=== PATIENT | female | born 1950 | race Caucasian/White ===

== ENCOUNTER 2017-04-03 10:27 | Day surgery (SDC) | payer MEDICARE ==
[~2017-04-03 10:27] MED LIST: ACET-703 PO; BETA0.1C TOPICAL; FERR325T PO; FLOR250C PO; GAS-80CH CHEW; HYDR-3516 PO; LEXA10TA PO; LISI-519 PO; MULT1CHW; SENN1TAB PO; TUMS500C CHEW; VITACAP32; ZANT150T2 PO
[2017-04-03] MEDS ORDERED: GAS-CAP3 PO (11:22)
[2017-04-03] MEDS ORDERED: VITA250T3 PO (11:22)
[2017-04-03] MEDS ORDERED: ASPI81CH37 CHEW (11:22)
[2017-04-03] MEDS ORDERED: FERR325C PO (11:22)
[2017-04-03] MEDS ORDERED: CHLORHEXIDINE GLUCONATE 2 % 1 PACK (2 CLOTHS) TOPICAL SCH (11:45)
[2017-04-03] MEDS ORDERED: ceFAZolin 2 GM PREMIX 50 ML IV SCH (11:45)
[2017-04-03] MEDS ORDERED: POVIDONE IODINE 5% (ANTISEPSIS KIT) 4 APPLICATIONS EACH NARE SCH (11:45)
[2017-04-03] MEDS ORDERED: MUPIROCIN 2% OINT 1 APPLIC/GM SYR NASAL SCH (11:45)
[2017-04-03] MEDS ORDERED: MIDAZOLAM HCL 2 MG/2 ML VIAL ONE (13:23)
--- NOTE | 2017-04-03 17:18 | MP ---
cc: CHANO DEAN M.D. DATE OF SURGERY 04/03/2017 OPERATIVE PROCEDURE Loop recorder insertion. INDICATION Cryptogenic stroke. CONSENT Full informed consent was obtained prior to the procedure. The risks of , bleeding, infection, foreseen and unforeseen complications were reviewed. The patient fully appeared to understand the risks. PROCEDURE DETAILS PT was prepped and draped in the usual manner. Left chest was prepped and draped in usual manner. Sedation was given by the undersigned of 2 mg of Versed and 50 of fentanyl. The patient given local anesthetic and a loop recorder was placed. CONCLUSION 1. Successful placement of loop recorder. 2. Sedation given with a Versed and fentanyl. PLAN We will plan to discharge the patient later today. Chano Dean MD, CP,[facility] HAJ/KK /2:36 PM /4:57 PM [facility] CENTERPatrick
== END 2017-04-03 15:30 | disposition home or self-care (01) ==
LOC: HDOC 10:27 → HDIC 10:28 → HDOC 15:30
PROVIDERS: ATTEND Internal Medicine Cardiovascular Disease
DX: I63.9 Cerebral infarction, unspecified (principal); I10 Essential (primary) hypertension; K21.9 Gastro-esophageal reflux disease without esophagitis
CPT/HCPCS: 33282; C1764; J2250; J3010

== ENCOUNTER → 2017-11-05 | Outpatient (CLI) | payer MEDICARE ==
[~2017-11-05] MED LIST changes: -ACET-703 PO; +ARTH650T6 PO; +ASPI81CH6 CHEW; -BETA0.1C TOPICAL; +DICL75TA PO; +FERR325C PO; -FERR325T PO; +FERR325T18 PO; -GAS-80CH CHEW; +GAS-CAP3 PO; -HYDR-3516 PO; +LISI10TA3 PO; -MULT1CHW; -SENN1TAB PO; +VITA250T3 PO; -VITACAP32
[2017-11-05 12:25] LABS: AUTOMATED NEUTROPHIL # 4.8 TH/MM3 (1.8-7.7); BASOPHIL % 0.6 % (0.0-2.0); EOSINOPHIL # 0.1 TH/MM3 (0-0.4); EOSINOPHIL % 1.5 % (0.0-4.0); HEMATOCRIT 39.9 % (35.0-46.0); HEMOGLOBIN 13.3 GM/DL (11.6-15.3); LYMPH % 23.6 % (9.0-44.0); LYMPHOCYTE # 1.7 TH/MM3 (1.0-4.8); MEAN CELL VOLUME 92.2 FL (80.0-100.0); MEAN CORPUSCULAR HEMOGLOBIN 30.8 PG (27.0-34.0); MEAN CORPUSCULAR HGB CONC 33.4 % (32.0-36.0); MEAN PLATELET VOLUME 8.5 FL (7.0-11.0); MONOCYTE # 0.5 TH/MM3 (0-0.9); NEUT % 67.3 % (16.0-70.0); PLATELET COUNT 310 TH/MM3 (150-450); RED BLOOD COUNT 4.33 MIL/MM3 (4.00-5.30); RED CELL DISTRIBUTION WIDTH 13.7 % (11.6-17.2); WHITE BLOOD COUNT 7.1 TH/MM3 (4.0-11.0)
[2017-11-05 12:37] LABS: PROTHROMBIN TIME - PATIENT 10.3 SEC (9.8-11.6)
[2017-11-05 12:41] LABS: BACTERIA, URINE FEW /hpf; BILIRUBIN, URINE NEG (NEG); BLOOD, URINE NEG (NEG); GLUCOSE,URINE NEG (NEG); HYALINE CAST, URINE 5 /lpf (RARE); KETONE, URINE NEG (NEG); MUCUS URINE FEW /lpf (OCC); NITRITE,URINE NEG (NEG); PH, URINE 5.5 (5.0-8.5); SQUAMOUS EPITHELIAL CELL URINE 2 /hpf (0-5); URINE COLOR YELLOW (YELLW/STRAW); URINE LEUKOCYTE ESTERASE SMALL (NEG)
[2017-11-05 12:54] LABS: WESTERGREN SEDIMENTATION RATE 44 mm/hr (0-30)
[2017-11-05 12:56] LABS: ALBUMIN 3.5 GM/DL (3.4-5.0); AST (GOT) 19 U/L (15-37); BICARBONATE 28.8 MEQ/L (21.0-32.0); BLOOD UREA NITROGEN 20 MG/DL (7-18); CALCIUM 8.7 MG/DL (8.5-10.1); CHLORIDE 112 MEQ/L (98-107); GLOMERULAR FILTRATION RATE 84 ML/MIN (>89); GLUCOSE,FASTING 86 MG/DL (74-99); SODIUM (NA) 146 MEQ/L (136-145)
[2017-11-05 12:57] LABS: ALT (GPT) 31 U/L (10-53)
[2017-11-05 12:59] LABS: ALKALINE PHOSPHATASE 119 U/L (45-117); TOTAL BILIRUBIN ADULT 0.3 MG/DL (0.2-1.0); TOTAL PROTEIN 7.6 GM/DL (6.4-8.2)
--- NOTE | 2017-11-05 13:30 | RADRPT ---
EXAM DATE/TIME: 11/05/2017 12:52 [facility] COMPARISON: No previous studies available for comparison. INDICATIONS : Preop Evaluate for pneumonia, pneumothorax, and communicable disease MEDICAL HISTORY : Hypertension. SURGICAL HISTORY : loop recorder ENCOUNTER: Initial ACUITY: 1 day PAIN SCORE: 0/10 LOCATION: chest FINDINGS: PA and lateral views of the chest demonstrate the lungs to be symmetrically aerated without evidence of mass, infiltrate or effusion. The cardiomediastinal contours are unremarkable. Mild degenerative changes in the mid thoracic spine. Loop recorder device in place. CONCLUSION: No acute cardiopulmonary disease. Mraco Barillas MD on November 05, 2017 at 13:27 Board Certified Radiologist. This report was verified electronically.
== END ==
LOC: CPRE 11:40
PROVIDERS: ATTEND Orthopaedic Surgery
DX: Z01.812 Encounter for preprocedural laboratory examination (principal); Z01.811 Encounter for preprocedural respiratory examination; Z01.818 Encounter for other preprocedural examination; M16.11 Unilateral primary osteoarthritis, right hip; M79.609 Pain in unspecified limb; M25.50 Pain in unspecified joint
CPT/HCPCS: 36415; 71046; 80053; 81001; 85025; 85610; 85652; 85730; 87086

== ENCOUNTER 2017-11-21 05:12 | Inpatient (IN) | payer MEDICARE ==
[~2017-11-21] VITALS: Ht 152.4 cm; Wt 93.0 kg
[~2017-11-21 05:12] MED LIST changes: -FERR325C PO; -LISI-519 PO
[2017-11-21] MEDS ORDERED: CHLORHEXIDINE GLUCONATE 4% SOLN 120 ML BTL TOPICAL SCH (05:45)
[2017-11-21] MEDS ORDERED: POVIDONE IODINE 7.5% SCRUB 118 ML BOTTLE TOPICAL SCH (05:45)
[2017-11-21] MEDS ORDERED: INSULIN HUMAN REGULAR 1,000 UNITS/10 ML VIAL SQ PRN (05:45)
[2017-11-21] MEDS ORDERED: LACTATED RINGER'S 1000 ML IV PRN (05:45)
[2017-11-21] MEDS ORDERED: METOPROLOL TARTRATE 25 MG TAB PO PRN (05:45)
[2017-11-21] MEDS ORDERED: POVIDONE IODINE 5% (ANTISEPSIS KIT) 4 APPLICATIONS EACH NARE PRN (05:45)
[2017-11-21] MEDS ORDERED: CHLORHEXIDINE GLUCONATE 2 % 1 PACK (2 CLOTHS) TOPICAL PRN (05:45)
[2017-11-21] MEDS ORDERED: SODIUM CHLORID 0.9% 500 ML IV PRN (05:45)
[2017-11-21] MEDS ORDERED: ceFAZolin 2 GM PREMIX 50 ML IV SCH (05:45)
[2017-11-21] MEDS ORDERED: GENTAMICIN SULFATE 80 MG/2 ML VIAL ONE (06:06)
[2017-11-21] MEDS ORDERED: VANCOMYCIN 1 GM/200 ML INJ 200 ML IV ONE (06:12)
[2017-11-21] MEDS ORDERED: ACETAMINOPHEN 1000 MG/100 ML 100 ML IV ONE (06:38)
[2017-11-21] MEDS ORDERED: FAMOTIDINE 20 MG/2 ML VIAL ONE (06:38)
--- NOTE | 2017-11-21 06:51 | HHI.DCPOC ---
Discharge Care Plan Diagnosis: (1) Osteoarthritis of right hip (2) Status post total hip replacement, right Your Health Problems Are: Difficulty with ADL Goals to Promote Your Health * To prevent worsening of your condition and complications * To maintain your health at the optimal level Directions to Meet Your Goals Take your medications as prescribed Follow your dietary instruction Follow activity as directed Keep your appointments as scheduled Take your immunizations and boosters as scheduled If your symptoms worsen call your PCP, if no PCP go to Urgent Care Center or Emergency Room Smoking is Dangerous to Your Health. Avoid second hand smoke Call the 24-hour hour crisis hotline for domestic abuse at Garcia Givens November 21, 2017 06:51
--- NOTE | 2017-11-21 06:52 | HHI.FF ---
Face to Face Verification Diagnosis: (1) Osteoarthritis of right hip (2) Status post total hip replacement, right Physical Therapy Gait training, Transfer training, bed to chair Hip: Total hip Right LE Weight Bearing: WB as tolerated Right LE Range of Motion: Active ROM Nursing Nursing: Tory patel Dressing Changes: Do not change dressing Additional Instructions First dressing change in the office I have seen patient Isabela Mccormick on 11/21/17. My clinical findings support the need for the requested home health care services because: Limited ability to care for self High risk of falls I certify that my clinical findings support that this patient is homebound because: Post-op weakness Unsteady gait/balance Garcia Givens November 21, 2017 06:52
[2017-11-21] MEDS ORDERED: VANCOMYCIN 1000 MG/NS 250 ML (for <70 kg) IV SCH ×2 (07:00)
[2017-11-21] MEDS ORDERED: DEXAMETHASONE SOD PHOS 20 MG/5 ML VIAL IV PUSH ONE (07:00)
[2017-11-21] MEDS ORDERED: WALKER WHEELS/F1 MIS (07:06)
[2017-11-21] MEDS ORDERED: COMMODE 3-IN-11 MIS (07:06)
[2017-11-21] MEDS: TRANEXAMIC ACID INJ 930 MG in SODIUM CHLORIDE 0.9% INJ 100 ML IV SCH ×2 (07:21→08:01)
[2017-11-21] MEDS: EXPAREL PERI-ARTICULAR INJECTION (TOTAL VOL. 60 ML) P-ARTICULR SCH ×4 (07:33→08:03)
[2017-11-21] MEDS ORDERED: HYDROmorphone HCL PF 2 MG/ML VIAL ONE (08:17)
--- NOTE | 2017-11-21 08:44 | RADRPT ---
EXAM DATE/TIME: 11/21/2017 06:30 [facility] COMPARISON: No previous studies available for comparison. INDICATIONS : Right hip pain, anterior hip replacement done in operating room. MEDICAL HISTORY : None. SURGICAL HISTORY : None. ENCOUNTER: Initial ACUITY: 1 day PAIN SCORE: Non-responsive. LOCATION: Right hip. FINDINGS: The patient is status post a total hip arthroplasty with a bipolar prosthesis. Prosthesis is well-sea saurabh. Alignment is anatomic. A fracture is not appreciated. CONCLUSION: Anatomic alignment. Richar Winn MD FACR on November 21, 2017 at 8:41 Board Certified Radiologist. This report was verified electronically.
[2017-11-21] MEDS ORDERED: NALOXONE HCL 0.4 MG/ML AMP IV PUSH PRN (08:45)
[2017-11-21] MEDS ORDERED: BISACODYL 10 MG SUPP RECTAL PRN (08:45)
[2017-11-21] MEDS ORDERED: MAGNESIUM HYDROXIDE SUSP 30 ML CUP PO PRN (08:45)
[2017-11-21] MEDS ORDERED: SIMETHICONE 180 MG PO PRN (08:45)
[2017-11-21] MEDS ORDERED: ALUMINUM/MAGNESIUM/SIMETH 30 ML CUP PO PRN (08:45)
[2017-11-21] MEDS ORDERED: diphenhydrAMINE HCL 50 MG/ML VIAL IV PUSH PRN (08:45)
[2017-11-21] MEDS ORDERED: ZOLPIDEM TARTRATE 5 MG TAB PO PRN (08:45)
[2017-11-21] MEDS ORDERED: MORPHINE SULFATE 4 MG/ML INJ IV PUSH PRN (08:45)
[2017-11-21] MEDS ORDERED: Post-op Orders (for Pharmacy) XX ONE (08:45)
--- NOTE | 2017-11-21 08:49 | PD.OP ---
cc: Edson Brandon MD Operative Report Date of Surgery: November 21, 2017 Preoperative Diagnosis: Right hip severe arthritis Postoperative Diagnosis: Same Procedure: Right total hip arthroplasty Anesthesia: General Surgeon: Edson Brandon Ginner Helper(s): TYE Bennett The surgical procedure was assisted by my Advanced Registered Nurse Practitioner. My SHANK BONER presence was necessary throughout this case for the manipulation and positioning of the surgical extremity. My SHANK BONER was assisting me throughout the duration of this procedure. The skill set of an Advance Registered Nurse Practitioner was medically necessary to complete this procedure. During the surgical case, the surgical sales representative was working at the back table and the Advance Registered Nurse Practitioner was directly assisting me. Operation and Findings: IMPLANT DESCRIPTION: 1. Galva Gription Cup, acetabular size 48, with single screw. 2. Galva AltrX polyethylene, neutral. 4. Corail femoral stem size 11, no collar, standard offset. 5. Femoral head/neck metal, 32, +5. ESTIMATED BLOOD LOSS: 250 cc. JUSTIFICATION FOR PROCEDURE: The patient has end-stage osteoarthritis to the hip. There is an attached conservative measures pathway form in the chart that describes the nonoperative measures that were undertaken prior to consideration of surgical management. The patient understood the risks and benefits of surgical management. See my office notes for further details. PROCEDURE: The patient was brought back to the operative theatre. Adequate anesthesia was obtained. The patient received intravenous vancomycin and Ancef. The patient was carefully placed on the operative table. The lower extremity was prepped and draped in the usual sterile fashion. Fluoroscopic images were obtained. We made a standard anterior incision over the hip. We dissected through the TFL fascia, exposing the anterior capsule. Arthrotomy was performed in a T-shaped fashion. The capsule was tagged with a #2 FiberWire. End-stage arthritis was identified. Osteotomy was performed through the femoral neck exposing the acetabulum. Remnants of the labrum were resected and osteophytes were removed. We sequentially reamed the acetabulum. We trialed the hip and placed the final cup into position. This was done under fluoroscopic guidance to obtain the appropriate inclination and anteversion. We placed a single screw under fluoroscopic guidance through the acetabular component with good purchase. A manhole cover was placed into the acetabular component. We then placed the final polyethylene into position and confirmed that it was well seated. Capsular attachments on the calcar and the inner aspect of the greater trochanter were resected. On the proximal aspect of the femur we used a rongeur , box osteotome, canal finder, sequential broaches and lateralizing rasp. We calcar planed the proximal femur. Then thoroughly irrigated the wound. We trialed the hip with the appropriate size stem. We placed the final stem in to position and trialed again. The hip was stable while it was externally rotated 70 degrees when the leg was lowered to the floor. We trialed the +1 neck length but found that it was unstable with external rotation is 70 in the leg brought about senior living down towards the floor with anterior subluxation and then dislocation. We decided to go with the +5. The +5 is much more stable. The final head was applied, and final fluoroscopic images were obtained. The wound was thoroughly irrigated again. Interarticular injection of liposomal bupivacaine was given. The capsule was closed with #2 FiberWire and #1 Vicryl. The deep fascia was closed with a #2 Stratafix, followed by 2-0 Vicryl in the skin and Dermabond dressing. Postop plan is to weight-bear as tolerated. DVT prophylaxis will be performed with SCDaracely, DONNIE mansfield, early mobilization, and Lovenox followed by aspirin. Edson Brandon MD November 21, 2017 08:48
[2017-11-21] MEDS ORDERED: NON-FORMULARY DRUG (Saccharomyces Boulardii (Florastor) 250 MG) PO SCH (09:00)
[2017-11-21] MEDS ORDERED: DO NOT ADM ANY ANTICOAGULANT DRUGS PRN (09:10)
[2017-11-21] MEDS ORDERED: ONDANSETRON ODT 4 MG TAB PO PRN (09:30)
[2017-11-21] MEDS ORDERED: *morphine SULFATE 4 MG/ML PERIprocedure ONLY ONE ×2 (09:35→09:43)
[2017-11-21] MEDS: SODIUM CHLOR 0.9% 1000 ML INJ 1,000 ML IV SCH ×2 (09:50→18:25)
[2017-11-21] MEDS ORDERED: *HYDROmorphone PF 0.5 MG/0.5 ML PERIprocedure ONLY ONE (09:55)
[2017-11-21] MEDS: LISINOPRIL 10 MG TAB PO SCH ×2 (10:00→20:47)
[2017-11-21] MEDS: FERROUS SULFATE 325 MG (65 MG ELEMENTAL IRON) TAB PO SCH (10:00)
[2017-11-21] MEDS ORDERED: TRANEXAMIC ACID INJ 930 MG in SODIUM CHLORIDE 0.9% INJ 100 ML IV SCH (11:00)
--- NOTE | 2017-11-21 11:07 | RADRPT ---
EXAM DATE/TIME: 11/21/2017 09:43 [facility] COMPARISON: HIP RIGHT (AP&LAT 2/3VWS) W AP PELVIS, June 30, 2016, 19:26. INDICATIONS : Post-op right hip. MEDICAL HISTORY : Cerebrovascular disease. Hypertension. Seizures.Breast cancer SURGICAL HISTORY : Craniotomy. ENCOUNTER: Initial ACUITY: 1 day PAIN SCORE: 10/10 LOCATION: Right Hip. FINDINGS: The patient is status post a total hip arthroplasty with a bipolar prosthesis. Prosthesis is well-sea saurabh. Alignment is anatomic. A fracture is not appreciated. CONCLUSION: Anatomic alignment. Richar Winn MD FACR Board Certified Radiologist. This report was verified electronically.
[2017-11-21] MEDS ORDERED: NEOSTIGMINE 5 MG/5 ML SYRINGE IV PUSH ONE (12:00)
[2017-11-21] MEDS ORDERED: GLYCOPYRROLATE 1 MG/5 ML SYRINGE IV PUSH ONE (12:00)
[2017-11-21] MEDS ORDERED: ePHEDrine/NS 25 MG/5 ML SYRINGE IV ONE (12:00)
[2017-11-21] MEDS ORDERED: ROCURONIUM INJ 50 MG/5 ML SYRINGE IV PUSH ONE (12:00)
[2017-11-21] MEDS ORDERED: LIDOCAINE HCL 1% PF 5 ML SYRINGE OTHER ONE (12:00)
[2017-11-21] MEDS ORDERED: PROPOFOL 200 MG/20 ML AMP IV ONE (12:00)
[2017-11-21] MEDS ORDERED: ONDANSETRON HCL 4 MG/2 ML VIAL IV ONE (12:00)
[2017-11-21 12:25] VITALS: BP 115/59; PULSE 60; RESP 18; TEMP 97.4; O2SAT 100
[2017-11-21] MEDS ORDERED: ENALAPRILAT 1.25 MG/ML VIAL IV PUSH PRN (15:45)
--- NOTE | 2017-11-21 15:52 | PD.CONS ---
[facility] By [facility] Brandon Reason for Consult Opinion and treatment of patient's elevated blood pressure Primary Care Physician Unknown Diagnoses: History of Present Illness 67-year-old white female with a previous history of osteoporosis and osteoarthritis who has had long history of right hip pain and failed outpatient conservative treatment. She electively underwent a right total hip arthroplasty today with Dr. Brandon. She states that her pain is currently controlled well. She denies a history of blood in the stool or black tarry stools. She denies a history of constipation. Review of Systems Constitutional: DENIES: Fatigue, Fever, Chills, Change in appetite Endocrine: DENIES: Heat/cold intolerance Eyes: DENIES: Blurred vision, Eye pain, Vision loss Ears, nose, mouth, throat: DENIES: Hearing loss, Nasal discharge, Throat pain, Ear Pain, Sinus Pain Respiratory: DENIES: Cough, Shortness of breath Cardiovascular: DENIES: Chest pain, Palpitations, Dyspnea on Exertion, Lower Extremity Edema Gastrointestinal: DENIES: Abdominal pain, Black stools, Bloody stools, Constipation, Diarrhea, Nausea, Vomiting Genitourinary: DENIES: Dysuria Musculoskeletal: COMPLAINS OF: Joint pain, DENIES: Muscle aches, Stiffness Integumentary: DENIES: Rash Hematologic/lymphatic: DENIES: Bruising, Lymphadenopathy Immunologic/allergic: DENIES: Eczema Neurologic: DENIES: Headache, Localized weakness, Paresthesias Psychiatric: DENIES: Anxiety, Depression, Suicidal Ideation Right hip and knee pain Past Family Social History Allergies: Coded Allergies: cyclobenzaprine (Unverified Adverse Reaction, Severe, Confusion, 11/21/17) Pt states it makes her loopy diazepam (Unverified Adverse Reaction, Mild, CRYING, 11/21/17) Past Medical History Osteoporosis Osteoarthritis Cataracts Migraine headaches Hypertension GERD Anxiety Depression Previous history of breast cancer Past Surgical History Gastric bypass Cholecystectomy Left total knee replacement Left hip fracture repair Right lumpectomy Cataract surgery Rhinoplasty Reported Medications Acetaminophen as needed for pain Vitamin C p.o. daily Aspirin 81 mg p.o. daily Calcium carbonate 500 mg chewable as needed for dyspepsia Diclofenac 75 mg p.o. twice daily Lexapro 10 mg p.o. nightly Ferrous sulfate 325 mg p.o. daily Lisinopril 10 mg p.o. twice daily Zantac 150 milligrams p.o. daily Forastor 250 mg PO Daily Gas-X as needed Family History Mother had CVA dementia hypertension osteoarthritis Father of a brain aneurysm Social History Does not smoke cigarettes or drink alcohol. Physical Exam Vital Signs Vital Signs Date Time Temp Pulse Resp B/P (MAP) Pulse Ox O2 Delivery O2 Flow Rate FiO2 11/21/17 12:00 54 14 113/56 (75) 96 Nasal Cannula 2 11/21/17 11:30 55 14 139/64 (89) 100 Nasal Cannula 2 11/21/17 10:30 97.9 62 12 133/55 (81) 98 Nasal Cannula 2 11/21/17 10:15 60 14 132/63 (86) 95 Nasal Cannula 2 11/21/17 10:00 70 24 119/57 (77) 99 Nasal Cannula 2 11/21/17 09:45 74 26 144/70 (94) 98 Nasal Cannula 2 11/21/17 09:30 85 15 132/68 (89) 98 Nasal Cannula 2 11/21/17 09:15 91 12 126/64 (84) 94 Simple Mask 6 11/21/17 09:13 97.5 93 14 112/59 (76) 96 Simple Mask 6 11/21/17 05:58 97.1 57 18 157/79 (105) 96 Physical Exam GENERAL: This is a well-nourished, well-developed patient, in no apparent distress. SKIN: No rashes, ecchymoses or lesions. Cool and dry. HEAD: Atraumatic. Normocephalic. No temporal or scalp tenderness. EYES: Pupils equal round and reactive. Extraocular motions intact. No scleral icterus. No injection or drainage. ENT: Nose without bleeding, purulent drainage or septal hematoma. Throat without erythema, tonsillar hypertrophy or exudate. Uvula midline. Airway patent. NECK: Trachea midline. No JVD or lymphadenopathy. Supple, nontender, no meningeal signs. CARDIOVASCULAR: Regular rate and rhythm RESPIRATORY: Clear to auscultation. Breath sounds equal bilaterally. No wheezes , rales, or rhonchi. GASTROINTESTINAL: Abdomen soft, non-tender, nondistended. No hepato-splenomegaly , or palpable masses. No guarding. MUSCULOSKELETAL: Extremities without clubbing, cyanosis, or edema. Bilateral SCDs, right hip bandage clean dry intact NEUROLOGICAL: Awake and alert. Cranial nerves II through XII intact. Motor and sensory grossly within normal limits. Normal speech. Assessment and Plan Assessment and Plan 1. Status post right total hip arthroplasty -continue postoperative care, physical therapy, pain control per orthopedic surgery Dr. Brandon 2. hypertension, chronic essential continue home lisinopril. Vasotec as needed for any uncontrolled blood pressure. Further recommendations based on blood pressure trends. 3. History of depression/anxiety resume home Lexapro 4. History of GERD resume Zantac 5. DVT prophylaxis risks and benefits of anticoagulation discussed with patient today. Initiate Lovenox per orthopedic surgery thank you for this consultation Christine Lowery MD November 21, 2017 15:52
[2017-11-21 16:00] VITALS: BP 138/72; PULSE 62; RESP 18; TEMP 98.5; O2SAT 96
[2017-11-21] MEDS: ACETAMINOPHEN/HYDROcodone 325 MG/5 MG TAB PO PRN ×2 (16:07→20:57)
[2017-11-21 20:00] VITALS: BP 145/63; PULSE 61; RESP 19; TEMP 97.4; O2SAT 96
[2017-11-21] MEDS: ESCITALOPRAM OXALATE 10 MG TAB PO SCH (20:46)
[2017-11-21] MEDS: FAMOTIDINE 20 MG TAB PO SCH (20:46)
[2017-11-22] VITALS: BP 158/67; PULSE 63; RESP 20; TEMP 98; O2SAT 99
[2017-11-22] MEDS: ACETAMINOPHEN/HYDROcodone 325 MG/5 MG TAB PO PRN ×5 (00:49→21:27)
[2017-11-22 06:27] LABS: HEMATOCRIT 32.9 % (35.0-46.0); HEMOGLOBIN 11.1 GM/DL (11.6-15.3); MEAN CELL VOLUME 91.2 FL (80.0-100.0); MEAN CORPUSCULAR HEMOGLOBIN 30.8 PG (27.0-34.0); MEAN CORPUSCULAR HGB CONC 33.8 % (32.0-36.0); MEAN PLATELET VOLUME 8.6 FL (7.0-11.0); PLATELET COUNT 265 TH/MM3 (150-450); RED CELL DISTRIBUTION WIDTH 13.3 % (11.6-17.2); WHITE BLOOD COUNT 9.1 TH/MM3 (4.0-11.0)
[2017-11-22] MEDS: SODIUM CHLOR 0.9% 1000 ML INJ 1,000 ML IV SCH ×2 (06:28→14:50)
[2017-11-22] MEDS ORDERED: DEXAMETHASONE SOD PHOS 20 MG/5 ML VIAL IV ONE (07:45)
[2017-11-22 08:00] VITALS: BP 128/74; PULSE 108; RESP 19; TEMP 98.3; O2SAT 98
[2017-11-22] MEDS: FERROUS SULFATE 325 MG (65 MG ELEMENTAL IRON) TAB PO SCH (08:02)
[2017-11-22] MEDS: FAMOTIDINE 20 MG TAB PO SCH ×2 (08:02→19:51)
[2017-11-22] MEDS: LISINOPRIL 10 MG TAB PO SCH ×2 (08:02→19:50)
[2017-11-22] MEDS: ENOXAPARIN SODIUM 40 MG/0.4 ML SYRINGE SQ SCH (08:02)
[2017-11-22] MEDS ORDERED: CALCIUM CARBONATE 500 MG CHEWABLE TAB CHEW PRN (09:15)
[2017-11-22 12:05] VITALS: BP 140/65; PULSE 68; RESP 18; TEMP 98.3; O2SAT 95
--- NOTE | 2017-11-22 14:10 | HHI.PR ---
Subjective Remarks Late charting: Patient seen earlier today at 9:15 Patient feel, "foggy." after receiving pain medications. Offers no other complaints at this time Objective Vitals Vital Signs Date Time Temp Pulse Resp B/P (MAP) Pulse Ox O2 Delivery O2 Flow Rate FiO2 11/22/17 12:05 98.3 68 18 140/65 (90) 95 11/22/17 08:00 98.3 108 19 128/74 (92) 98 11/22/17 00:00 98.0 63 20 158/67 (97) 99 11/21/17 20:00 97.4 61 19 145/63 (90) 96 11/21/17 17:07 18 11/21/17 16:00 98.5 62 18 138/72 (94) 96 I/O 11/21/17 11/21/17 11/21/17 11/22/17 11/22/17 11/22/17 07:00 15:00 23:00 07:00 15:00 23:00 Intake Total 1250 ml 480 ml Output Total 550 ml Balance 700 ml 480 ml Intake Oral 480 ml IV Total 1250 ml Output Urine Total 300 ml Estimated Blood Loss 250 ml # Voids 1 Result Diagram: 11/22/17 0519 Other Results Laboratory Tests Test 11/22/17 05:19 White Blood Count 9.1 TH/MM3 Red Blood Count 3.60 MIL/MM3 Hemoglobin 11.1 GM/DL Hematocrit 32.9 % Mean Corpuscular Volume 91.2 FL Mean Corpuscular Hemoglobin 30.8 PG Mean Corpuscular Hemoglobin Concent 33.8 % Red Cell Distribution Width 13.3 % Platelet Count 265 TH/MM3 Mean Platelet Volume 8.6 FL Imaging Last Impressions Hip and Pelvis X-Ray 11/21/17 0843 Signed Impressions: Service Date/Time: Tuesday, November 21, 2017 09:43 - CONCLUSION: Anatomic alignment. Richar Winn MD Hip X-Ray 11/21/17 0000 Signed Impressions: Service Date/Time: Tuesday, November 21, 2017 06:30 - CONCLUSION: Anatomic alignment. Richar Winn MD FACR Objective Remarks GENERAL: This is a well-nourished, well-developed patient, fatigued but in no apparent distress. CARDIOVASCULAR: Regular rate and rhythm RESPIRATORY: Clear to auscultation. Breath sounds equal bilaterally. GASTROINTESTINAL: Abdomen soft, non-tender, nondistended. Normal active bowel sounds MUSCULOSKELETAL: post-op dressing dry and intact NEURO: Alert & Oriented x4 to person, place, time, situation. Moves all ext x4 A/P Problem List: (1) Osteoarthritis of right hip ICD Code: M16.11 - Unilateral primary osteoarthritis, right hip (2) Hypertension ICD Code: I10 - Hypertension Status: Chronic Assessment and Plan 1. Status post right total hip arthroplasty 11/[address] Brandon -continue postoperative care, physical therapy, pain control per orthopedic 2. hypertension, chronic essential continue home lisinopril. Vasotec as needed for any uncontrolled blood pressure. Further recommendations based on blood pressure trends. 3. History of depression/anxiety resume home Lexapro 4. History of GERD resume Zantac 5. DVT prophylaxis Lovenox per orthopedic surgery Supervising physician Dr. Pike Problem Qualifiers (1) Osteoarthritis of right hip: Qualified Codes: M16.11 - Unilateral primary osteoarthritis, right hip Monik Baca November 22, 2017 14:10
[2017-11-22 15:45] VITALS: BP 119/59; PULSE 60; RESP 18; TEMP 97.4; O2SAT 93
--- NOTE | 2017-11-22 18:35 | PD.ORT.PN ---
Subjective Post Op Day #: 1 Subjective Remarks Patient is OOB in chair eating dinner with at bedside. Patient reports moderate right hip pain. Patient has been ambulatory. Objective Vitals Vital Signs Date Time Temp Pulse Resp B/P (MAP) Pulse Ox O2 Delivery O2 Flow Rate FiO2 11/22/17 15:45 97.4 60 18 119/59 (79) 93 11/22/17 12:05 98.3 68 18 140/65 (90) 95 11/22/17 08:00 98.3 108 19 128/74 (92) 98 11/22/17 00:00 98.0 63 20 158/67 (97) 99 11/21/17 20:00 97.4 61 19 145/63 (90) 96 I/O 11/21/17 11/21/17 11/21/17 11/22/17 11/22/17 11/22/17 07:00 15:00 23:00 07:00 15:00 23:00 Intake Total 1250 ml 480 ml 960 ml Output Total 550 ml Balance 700 ml 480 ml 960 ml Intake Oral 480 ml 960 ml IV Total 1250 ml Output Urine Total 300 ml Estimated Blood Loss 250 ml # Voids 1 4 # Bowel Movements 0 Result Diagram: 11/22/17 0519 Procedures Right JENNIFER Objective Remarks Dressing is C/D/I. Moderate ecchymosis to the right hip. EHL/TA/G intact. 2+ pedal pulse. Calf is soft and nontender. + SILT distally. Assessment & Plan Ortho Post Op Day #: 1 Problem List: Assessment and Plan POD #1: Right JENNIFER 1. WBAT RLE 2. Lovenox followed by ASA for DVT prophylaxis 3. Ice to the Right hip PRN 4. Stable for discharge home with home health on Sunday. 5. F/U in the office with Dr. Brandon or Bernabe GAMBLE as previously scheduled. Garcia Givens November 22, 2017 18:35
[2017-11-22] MEDS: DOCUSATE SODIUM 100 MG CAP PO SCH (19:50)
[2017-11-22] MEDS: MULTIVITAMINS/MINERALS THERAPEUTIC TAB PO SCH (19:51)
[2017-11-22] MEDS: ESCITALOPRAM OXALATE 10 MG TAB PO SCH (19:51)
[2017-11-22 20:00] VITALS: BP 113/58; PULSE 61; RESP 20; TEMP 97.7; O2SAT 94
[2017-11-23] VITALS: BP 144/66; PULSE 59; RESP 20; TEMP 97.9; O2SAT 93
[2017-11-23] MEDS: SODIUM CHLOR 0.9% 1000 ML INJ 1,000 ML IV SCH (01:00)
[2017-11-23] MEDS: ACETAMINOPHEN/HYDROcodone 325 MG/5 MG TAB PO PRN ×2 (01:40→10:51)
[2017-11-23 04:00] VITALS: BP 148/68; PULSE 54; RESP 20; TEMP 97.5; O2SAT 95
[2017-11-23 05:08] LABS: HEMATOCRIT 30.1 % (35.0-46.0); HEMOGLOBIN 10.3 GM/DL (11.6-15.3); MEAN CELL VOLUME 91.2 FL (80.0-100.0); MEAN CORPUSCULAR HEMOGLOBIN 31.1 PG (27.0-34.0); MEAN CORPUSCULAR HGB CONC 34.1 % (32.0-36.0); MEAN PLATELET VOLUME 8.7 FL (7.0-11.0); PLATELET COUNT 230 TH/MM3 (150-450); RED CELL DISTRIBUTION WIDTH 13.8 % (11.6-17.2); WHITE BLOOD COUNT 10.4 TH/MM3 (4.0-11.0)
[2017-11-23 07:24] VITALS: BP 115/64; PULSE 59; RESP 17; TEMP 98.1; O2SAT 93
[2017-11-23] MEDS: LISINOPRIL 10 MG TAB PO SCH (08:29)
[2017-11-23] MEDS: DOCUSATE SODIUM 100 MG CAP PO SCH (08:29)
[2017-11-23] MEDS: MULTIVITAMINS/MINERALS THERAPEUTIC TAB PO SCH (08:29)
[2017-11-23] MEDS: FERROUS SULFATE 325 MG (65 MG ELEMENTAL IRON) TAB PO SCH (08:29)
[2017-11-23] MEDS: FAMOTIDINE 20 MG TAB PO SCH (08:30)
[2017-11-23] MEDS: ENOXAPARIN SODIUM 40 MG/0.4 ML SYRINGE SQ SCH (08:31)
--- NOTE | 2017-11-26 21:11 | HHI.DS ---
Discharge Summary Admission Date November 21, 2017 at 05:12 Discharge Date: November 23, 2017 Admitting Diagnosis OA of the right hip Status post total hip replacement, right Diagnosis: (1) Osteoarthritis of right hip Diagnosis: Principal ICD Codes: M16.11 - Unilateral primary osteoarthritis, right hip (2) Status post total hip replacement, right Diagnosis: Principal ICD Codes: Z96.641 - Presence of right artificial hip joint Procedures Right JENNIFER Brief History This is a 67 year old female patient with severe OA of the right hip CBC/BMP: 11/23/17 0430 PE at Discharge Dressing is C/D/I. Moderate ecchymosis to the right hip. EHL/TA/G intact. 2+ pedal pulse. Calf is soft and nontender. + SILT distally. Hospital Course The patient was admitted to the hospital for severe OA of the right hip to have a right JENNIFER. The patient's surgery went well without complication. The patient is WBAT. The patient is on a regular diet. The patient is on Lovenox followed by ASA for DVT prophylaxis. The patient was discharged home with home health and will f/u in the office with Dr. Brandon or TYE Romero as previously scheduled. Pt Condition on Discharge: Stable Discharge Disposition: Disch w/ Home Health Serv Discharge Instructions Diet Instructions: As Tolerated, No Restrictions Activities You Can Perform: Weight Bearing as Jean Activities to Avoid: Strenuous Activity Follow up Referrals: Orthopedics with Edson Brandon MD SNF/SKILLED NURSING/ with [facility] New Medications: Commode 3-in-1 (Commode 3-in-1) 1 Mis Mis EA .XX DIRECTED, #1 0 Refills Walker with Front Wheels (Walker with Front Wheels) 1 Mis Mis EA .XX DIRECTED, #1 0 Refills Continued Medications: Ascorbic Acid (Vitamin C) 250 Mg Tab 500 MG PO DAILY for Nutritional Supplement, TAB 0 Refills Calcium Carbonate (Antacid) (Tums) 500 Mg Chew 500 MG CHEW PRN for HEARTBURN, TAB 0 Refills Escitalopram (Lexapro) 10 Mg Tab 10 MG PO HS, #30 TAB 1 Refill Ferrous Sulfate (Ferrous Sulfate) 325 Mg (65 Mg Iron) Tablet 325 MG PO DAILY for Nutritional Supplement, #30 TAB 0 Refills Lisinopril (Lisinopril) 10 Mg Tab 10 MG PO BID, #30 TAB 0 Refills Ranitidine (Zantac) 150 Mg Tab 150 MG PO DAILY for Reduce Stomach Acid, #30 TAB 1 Refill Saccharomyces Boulardii (Florastor) 250 Mg Cap 250 MG PO DAILY for Nutritional Supplement, CAP 0 Refills Simethicone (Gas-X Ultra Strength) 180 Mg Cap 180 MG PO Q6HR PRN for GAS RETENTION, CAP 0 Refills Discontinued Medications: Acetaminophen ER 8 HR (Arthritis Pain Reliever ER 8 HR) 650 Mg Tab 650 MG PO Q8HR PRN for PAIN, TAB 0 Refills Aspirin (Aspirin Low Dose) 81 Mg Chew 81 MG CHEW DAILY, TAB [address] (Diclofenac Sodium DR) 75 Mg Tabdr 75 MG PO BID, #60 TAB 0 Refills Garcia Givens November 26, 2017 21:11
== END 2017-11-23 11:00 | disposition home health service (06) | DRG 470 ==
LOC: HSDI 05:12 → N06A 12:26
PROVIDERS: ADMIT Orthopaedic Surgery; ATTEND Orthopaedic Surgery
PROC: 0SR902Z Replacement of Right Hip Joint with Metal on Polyethylene Synthetic Substitute, Open Approach (ICD-10-PCS; principal; 2017-11-21 06:43)
DX: M16.11 Unilateral primary osteoarthritis, right hip (principal); Z68.41 Body mass index [BMI] 40.0-44.9, adult; I10 Essential (primary) hypertension; M25.751 Osteophyte, right hip; E66.01 Morbid (severe) obesity due to excess calories; M81.0 Age-related osteoporosis without current pathological fracture; K21.9 Gastro-esophageal reflux disease without esophagitis; F32.9 Major depressive disorder, single episode, unspecified; F41.9 Anxiety disorder, unspecified; Z85.3 Personal history of malignant neoplasm of breast; Z98.84 Bariatric surgery status; Z96.652 Presence of left artificial knee joint
CPT/HCPCS: 73502; 76000; 85027; 86850; 86900; 86901; 94150; C1776; C9290; J0131; J0690; J1100; J1170; J1580; J1650; J2270; J2405; J2710; J3010; J3370; J7030; J7120